=== PATIENT | female | born 1980 | race Caucasian/White ===

== ENCOUNTER 2019-09-19 12:28 | Outpatient (CLI) | payer OTHER, SELFPAY ==
--- NOTE | ~2019-09-19 | MMUS_ITS ---
EXAMINATION: MM diagnostic mammo unilat LT, US breast LT limited HISTORY: 6 x 9 mm mass in posterior lower outer left breast on screening mammogram of 08/14/2019 TECHNIQUE: Additional 3-D tomosynthesis images of the left breast were performed and synthetic 2-D im ages were generated. CAD analysis was submitted and interpreted. Targeted left breast ultrasound exam ination COMPARISON: 08/14/2019 bilateral digital screening mammogram LEFT DIAGNOSTIC FINDINGS: There is a circumscribed approximately 5.4 x 8.1 mm mass in the posterior a spect of the mid lateral left breast. TARGETED LEFT BREAST ULTRASOUND FINDINGS: In the posterior left breast at 5:00 8 cm from the nipple t here is an oval parallel circumscribed approximately 3 x 7 x 8.8 mm hypoechoic lesion without interna l vascularity or posterior shadowing. The sonographic and mammographic appearances suggest benign pro cess. 6 month follow-up is recommended. IMPRESSION: 1. Probable benign finding at 5:00 8 cm from nipple 2. Six-month follow-up diagnostic left mammogram and targeted left breast ultrasound examination are recommended. BI-RADS Category 0: Incomplete: Needs additional imaging evaluation. And ultrasound Reviewed, dictated and finalized at location A. [employer] IMPRESSION: 1. Probable benign finding at 5:00 8 cm from nipple 2. Six-month follow-up diagnostic left mammogram and targeted left breast ultra sound examination are recommended. BI-RADS Category 0: Incomplete: Needs additional imaging evaluation. And ultrasound
== END 2019-09-19 12:29 | disposition home or self-care (01) ==
DX: R92.8 Other abnormal and inconclusive findings on diagnostic imaging of breast (principal)
CPT/HCPCS: 76642; 77065